=== PATIENT | female | born 2005 | race Caucasian/White ===

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

== ENCOUNTER 2025-10-24 15:10 | Emergency (ER) | payer OTHER ==
[~2025-10-24] VITALS: Ht 165.1 cm; Wt 87.9 kg
[2025-10-24] MEDS ORDERED: ZEPBOUND2.5 MG/0.5 SQ (16:09)
[2025-10-24] MEDS ORDERED: SODIUM CHLORIDE 0.9% 500 ML IV PRN (16:15)
[2025-10-24 16:40] LABS: BASOPHILS 0.5 % (0.1-1.2); EOSINOPHILS 2.2 % (0.7-5.8); LYMPHOCYTES 35.4 % (19.3-51.7); MCH 29.8 PG (25.6-32.2); MCHC 33.4 g/dL (32.2-35.5); MCV 89.3 fL (79.4-94.8); MONOCYTES 8.7 % (4.7-12.5); NEUTROPHILS 52.8 % (34.0-71.1); RBC 4.59 M/uL (3.93-5.22)
[2025-10-24 17:02] LABS: INR 1.09 (0.80-1.30); PROTIME 13.4 Sec (11.2-14.2)
[2025-10-24 17:07] LABS: ALT (SGPT) 29.0 U/L (14-59); AST (SGOT) 17.0 U/L (15-37); GLOMERULAR FILTRATION RATE,EST 123.0 mL/min (>60); PROTEIN, TOTAL 7.5 g/dL (6.4-8.2); UREA NITROGEN 11.0 mg/dL (7-18)
[2025-10-24 17:34] LABS: ABO AB; RH POSITIVE
[2025-10-24 17:35] LABS: ANTIBODY SCREEN NEGATIVE
[2025-10-24 18:20] VITALS: BP 110/71
== END 2025-10-24 18:25 | disposition home or self-care (01) ==
LOC: ED 15:10
PROVIDERS: Emergency Medicine
DX: K62.5 Hemorrhage of anus and rectum (principal); Z91.048 Other nonmedicinal substance allergy status; Z79.899 Other long term (current) drug therapy
CPT/HCPCS: 36415; 80053; 85025; 85610; 85730; 86850; 86900; 86901; 99283